=== PATIENT | female | born 1980 | race Caucasian/White ===

== ENCOUNTER 2016-04-27 03:54 | Inpatient (IN) | payer OTHER ==
[2016-04-27 04:08] VITALS: BMI 28.3
[2016-04-27] MEDS ORDERED: OXYTOCIN 10 UNITS/ML VIAL IM ONE (10:27)
[2016-04-27] MEDS ORDERED: LIDOCAINE Viscous 2% 15 ML UDCUP ONE (10:29)
[2016-04-27] MEDS ORDERED: LIDOCAINE 1% (PRES FREE) 30 ML VIAL ONE (10:29)
[2016-04-27] MEDS ORDERED: OXYTOCIN 10 UNITS/ML VIAL ONE (10:29)
[2016-04-27] MEDS ORDERED: MINERAL OIL 25 ML BOT ONE (10:29)
[2016-04-27] MEDS ORDERED: PUMP TUBING ONE (10:29)
[2016-04-27] MEDS ORDERED: OXYTOCIN IN LR 0 ML IV ONE (10:29)
[2016-04-27 10:59] LABS: HEMATOCRIT 35.7 % (37.0-47.0); HEMOGLOBIN 12.5 gm/l (12.0-16.0); MEAN CORPUSCULAR HEMOGLOBIN 32.2 pg (27.0-31.0); RED CELL DISTRIBUTION WIDTH 12.6 % (11.5-14.5)
--- NOTE | 2016-04-27 11:14 | PCMAN ---
OB Admission Note - History : 1 Term: 0 : 0 Abortions (S&E): 0 Livin Gestational Age (weeks): 39 Days (#/7): 4 Admit Cervical Dilation:: 5 Admit Cervical Effacement (%):: 100 Admit Station:: -1 Admit Presentaton:: vertex Membrane Status: Bulging Membranes Comment:: intact Labor Onset (Date): 04/27/16 Labor Onset (Time): 10:36 Contractions: Yes Contraction Frequency:: q 2-3 mins lasting 60-90 sec Heart Rate:: 150 (moderate variability, no decels, pos accels) Status:: Cat 1 EFW:: 6.75lbs Summary of Course:: SHENG Piper is a 35yo at 39w4d who presented for care in latent labor this morning after sari all night. She presented to triage with concern for SROM. Negative ferning, nitrazine and pooling, did not confirm ROM. SVE was 1/ 80%/-1 and BBOW was palpated. After 5 hours in triage, she had progressed to 5cm/100%/-1/mid/soft and was admitted for care in active labor. Reactive NST. Course Planned welcome with , Godwin. Veronique initiated PNC at [facility] in [facility] at 8w2d and transferred to the Midwives at 17w5d for a total of 16 visits. Dates confirmed by 8w US. She participated in Centering Care and attended the labor class. Her 20w US was WNL. Initial BMI was 25 with a TWG of 25 lbs. GBS neg status. Her was complicated by concerns for growth r/t measuring S<D, follow up US at 31 and 33 weeks showed adequate growth and fluid levels WNL. OB Hx - negative Med Hx - Depression, has not needed meds for 6 years, stable trhoughout this Surg Hx: wisdom teeth 1998 Allergies: Sulfa drugs - Labs Blood Type: A (+) positive Hct/Hgb:: 10.9/40.7 Rubella Status: Immune GBS Status: Negative Abnormal Labs: None - Review of Systems Complete ROS is negative except for abdominal pain described as contractions and brownish tinged vaginal mucous. - Physical Exam General: Afebrile Psych/Mental Status: Mood/Affect Appropriate, Judgment/Insight Intact Neurological: Grossly Intact, Alert, Oriented x 4 HEENT: Atraumatic Lungs: Clear to Auscultation Bilaterally, Normal Air Movement Cardiovascular: Regular Rate and Rhythm, Normal S1, Normal S2 Genitourinary: Normal Female Genitalia Rectal Exam: Deferred Extremities: Full ROM Skin: Normal Color (Flaco's LOP) - Problems (1) Active labor at term Status: Acute Code: [id number]/Plan: A: Undelivered at 39w4d Active Labor GBS neg Intact membranes VSS Fetus Cat 1 P: Admit to [facility] Patient desires unmedicated . Plans to use hydrotherapy, positions, support from her partner to manage the intensity of labor. Patient declined RPR on admit, declines AMTSL. IA monitoring per unit protocol Reevaluate in 2-4 hours or when clinically indicated. Anticipate .
--- NOTE | 2016-04-27 12:46 | PDOC36 ---
Provider Note Subject: Labor Progress Note Note: S: Veronique just got out of the tub, reports that her back pain is improved and is asking about doing Spinning Babies in labor. O: VS BP 140/77 T 37.1C RR 20 P 109 FHR 145, regular rhythm, no decreases auscultated ctx q 2-3 mins moderate by palpation with adequate resting tone SVE deferred membranes intact A: Undelivered at 39w4d Active Labor GBS neg Intact membranes VSS Fetus reassurring per IA P: Patient instructed in side-lying release with partner supporting. Will do this 15 mins per side. Continue with ambulation, ball, hydrotherapy, positions, & support from her partner to manage the intensity of labor. IA monitoring per unit protocol Reevaluate in 2-4 hours or when clinically indicated. Anticipate .
--- NOTE | 2016-04-27 15:17 | PDOC36 ---
Provider Note Subject: Labor Progress Note Note: S: Veronique is feeling a lot of pressure and pain in her back. She is breathing and working hard with contractions. O: VS BP 114/73 T 37.7C RR 22 P 94 FHR 150, regular rhythm, no decreases auscultated ctx q 1-3 mins strong by palpation with adequate resting tone last SVE at 1345 7cm/100%/-1 SROM clear fluid at 1405 A: Undelivered at 39w4d Active Labor GBS neg Ruptured membranes, afebrile VSS Fetus reassurring per IA Coping well with labor P: Continue with ambulation, ball, hydrotherapy, positions, & support from her partner, CNM and RN to manage the intensity of labor. IA monitoring per unit protocol Reevaluate in 2-4 hours or when clinically indicated. Anticipate .
--- NOTE | 2016-04-27 18:41 | PDOC36 ---
Provider Note Subject: Progress Note Note: S/ Veronique is coping very well through her ctxs. She is breathing and laying on her side in bed. She c/o back pain and pressure is being applied. Her is very supportive. Bag of fluid noted with exam. Discussed with Veronique that this can be broken if she desired, however, labor is progressing and it is not essential at this time. She agrees to wait to see how labor continues. She is quite tired and ready to be done. O/ SVE: 9/100/0 Intact Position not palpated FHR by IA 145, No decels noted with auscultation Ctxs every 2-4 mins, lasting 40-60 secs 101/58, 93, 18 Afebrile GBS neg A/ Active labor Cat 1 FHR Coping P/ Position changes - Encouraged forward leaning. Currently she is sleeping between ctxs on her side. Clear liquids Encourage to empty bladder AROM only if progress slows Anticipate vaginal
[2016-04-27] MEDS ORDERED: MINERAL OIL 25 ML BOT TP ONE (22:12)
[2016-04-27] MEDS ORDERED: PHENYLEPHRINE 0.25% PR PRN (22:55)
[2016-04-27] MEDS ORDERED: LANOLIN 50 APPLIC/7G TUBE TP PRN (22:56)
[2016-04-27] MEDS ORDERED: ACETAMINOPHEN 325 MG TABLET PO PRN (22:56)
[2016-04-27] MEDS ORDERED: DOCUSATE SODIUM 100 MG CAPSULE PO PRN (22:56)
[2016-04-27] MEDS ORDERED: HYDROCODONE/ACETAMINOPHEN 5/325MG TABLET PO PRN (22:56)
[2016-04-27] MEDS ORDERED: BENZOCAINE/MENTHOL 60 APPLIC/BOT TP PRN (22:56)
[2016-04-27] MEDS ORDERED: OXYCODONE/ACETAMINOPHEN 5/325 MG TABLET PO PRN (22:56)
[2016-04-27] MEDS: IBUPROFEN 800 MG TABLET PO SCH (23:07)
--- NOTE | 2016-04-27 23:19 | PCMDEL ---
Delivery Note - Labor 1st stage (hr/min):: 11hours and 16 mins 2nd stage (hr/min):: 1 hour and 4 mins 3rd stage (hr/min):: 17 mins Pushed (hr/min):: 1 hour and 4 mins - Delivery Delivery (Date): 04/27/16 Delivery (Time): 22:06 Infant Gender: Female Position: OA Umbilical Cord: 3 Vessel Delayed Cord Clamping:: < 1 min 1 Minute Total: 5 5 Minute Total: 6 Placenta:: Intact, meeks EBL:: 200 mls Perineum:: 1st degree and left inner labia Suture:: none Anesthesia/Meds:: none Length ROM:: 1 hr and 21 mins Comments:: Vaginal Delivery Note: Stage I: Patient is a 35 year-old with an CASIMIRO of [birth year] who presents to L&D at 39 weeks and 4 days gestation. Her care has not been complicated. Her GBS screen was Negative. The patient was admitted on 04/27/16 10:25. Membranes ruptured on 04/27/16 at 14:05 for clear fluid - probably a forebag. She SROM'd at 8:45 pm for mec stained fluid. EFM was placed at this time. Active labor progressed well throughout the day. Veronique actively labored unmedicated and in a variety of positions. Induction/augmentation agents: NONE heart rate tracing revealed category 1 in early labor and IA used. After she SROM'd for light mec, EFM was placed. Within minutes of SROM she was having a strong urge to push with ctxs. She was noted to have variables with pushing, particularly while on her back. Pt was rotated to her left side and pushed effectively in this position. She was rotated to her right side also. FHR was Cat 2 throughout pushing. Anesthesia: NONE Stage II: Second stage was approximately 1 hour and 4 mins minutes in duration. She went on to effective spontaneous vaginal delivery vertex; baby restituted to ALEX, 1 X nuchal cord that was not reduced. Remainder of baby delivered without complications. No shoulder dystocia evident. An episiotomy was not performed. Delayed cord clamping of one minute not undertaken. After baby was stimulated she remained limp and not attemtping to breath well on her own. The cord was clamped and cut and baby given to RT. She was stimulated and could be heard trying to cry. Her HR was >100. A female baby was born at 10:06pm. Birthweight was pending. scores were 5, 6 and 8. Stage III: Third stage was normal with spontaneous vaginal delivery of an intact placenta with a 3 vessel cord with central cord insertion. Her perineum and vagina were inspected and a 1st degree laceration was noted. At the conclusion of the delivery the sponge and the needle count were correct. Estimated blood was 200 ml. Uterus firmed up nicely. Active management of third stage of labor was not required. Complications: Mec stained fluid, cord clamped and cut for respiratory help immediately post delivery. Baby did well after being suctioned. After some oxygen, baby was placed skin to skin with mum. Baby Bubba's o2 sats were 97%
[2016-04-28] MEDS: IBUPROFEN 800 MG TABLET PO SCH ×2 (08:02→16:29)
--- NOTE | 2016-04-28 11:01 | PDOC44 ---
- Subjective Day: 1 Veronique is feeling well this morning. She reports minimal cramping and bleeding. Taking Ibuprofen with good effect. She reports baby has been to the breast with some sucks. Encouraged working with this morning. Eating, drinking and voiding. Plan on going home tomorrow. Reports , Reports Lochia Light, Reports Tolerating Regular Diet - Objective Temp Pulse Resp BP Pulse Ox 98.4 F 93 16 112/59 04/28/16 07:52 04/28/16 07:52 04/28/16 07:52 04/28/16 07:52 Lab Results 04/27/16 10:54 WBC 18.4 H RBC 3.88 L Hgb 12.5 Hct 35.7 L Plt Count 173 04/27/16 10:54 MCH 32.2 H Current Medications Generic Name Dose Route Start Last Admin Trade Name Freq PRN Reason Stop Dose Admin Acetaminophen 325 - 650 mg 04/27/16 22:56 Tylenol PO Q4H PRN Pain (Mild) Acetaminophen/Hydrocodone Bitart 1 - 2 tab 04/27/16 22:56 [place] 5/325 PO Q4H PRN Pain (Moderate) Benzocaine/Menthol 1 applic 04/27/16 22:56 Dermoplast TP PRN PRN Patient Comfort Docusate Sodium 100 mg 04/27/16 22:56 Colace PO DAILY PRN Comfort Emollient Ointment 1 applic 04/27/16 22:56 [id number] TP PRN PRN sore nipples Ibuprofen 800 mg 04/27/16 23:00 04/28/16 08:02 Motrin PO 800 mg Q8H KULWINDER Administration Oxycodone/Acetaminophen 1 - 2 tab 04/27/16 22:56 Percocet 5/325 PO Q4H PRN Pain (Moderate) Phenylephrine HCl 1 each 04/27/16 22:55 Anusol MA DAILY PRN Pain Sodium Chloride 10 ml 04/27/16 22:56 Normal Saline 10ml Flush IV PRN PRN IV Flush Sodium Chloride 10 ml 04/28/16 09:00 Normal Saline 10ml Flush IV Q8HR KULWINDER - Physical Exam General: Afebrile Psych/Mental Status: Mood/Affect Appropriate Neurological: Grossly Intact, Alert Cardiovascular: Regular Rate and Rhythm Breast: Soft, Skin intact Fundus: Firm Genitourinary: Normal Female Genitalia Lochia: Light Rectal Exam: Deferred Extremities: Full ROM Skin: Normal Color, Warm, Dry, Intact - Problems:Assessment/Plan (1) Normal course Status: AcuteAssessment/Plan: A/ Day 1 s/p vaginal delivery P/ consult today Rest Disposition: Anticipate DC to Home, Anticipate DC Home Tomorrow
[2016-04-29] MEDS: IBUPROFEN 800 MG TABLET PO SCH ×2 (00:18→08:29)
[2016-04-29 08:35] VITALS: BP 107/69
--- NOTE | 2016-04-29 12:52 | PDOC39B ---
Hospital Course: ADMIT DATE: 04/27/16 DISCHARGE DATE: 04/29/16 ADMISSION DIAGNOSES: uterine contractions PROCEDURES: HISTORY OF PRESENT ILLNESS: 35 year old G1 T0 L0 at 39 weeks 4 days presenting with uterine contractions. Achieved an . Stable course. HOSPITAL COURSE: By day of discharge the patient is ambulating, eating, voiding , and passing flatus without difficulty. Pain is controlled and lochia is appropriate. She is exclusively, which has improved after baby's frenotomy. Denies need for Rx. Plans to use Paragard for control. Excellent support from and family. - Physical Exam Vital Signs: Temp Pulse Resp BP Pulse Ox 97.6 F 76 16 107/69 04/29/16 08:20 04/29/16 08:20 04/29/16 08:20 04/29/16 08:20 Psych/Mental Status: Mood/Affect Appropriate, Judgment/Insight Intact, Tearful Lungs: Clear to Auscultation Bilaterally Cardiovascular: Regular Rate and Rhythm Breast: Soft, Skin intact, Erythema (Slight erythema on both nipples; no crack, blisters, or bleeding), Nipples Intact Fundus: Firm, Midline, Below Umbilicus (1FB below) Genitourinary: Normal Female Genitalia Lochia: Light - Discharge Diagnosis (1) Normal course Status: AcuteAssessment/Plan: A: Day 2 s/p vaginal -baby s/p frenontomy with improved latch Lochia stable P: Education: education handout given and reviewed. Discussed warning signs and when to call (bleeding, DVT/PE, infection, baby blues vs mood disorder). : on-demand feedings, [id number], use lanolin and soothies PRN, BABIES clinic appointments Social: good support at home, able to take 1mo off of work, then will have 3 months over the summer off. Rx: none needed Contraception: Paragard Follow-up: on 05/10/16 for 2-week visit or PRN - Discharge Plan Condition: Stable Disposition: Home Additional Instructions: BABIES clinic appt for Friday, 04/30, at 3pm. Bring baby ready to nurse. [place] at the medical front desk specialist of the [facility]. 2-week appointment for Veronique on 05/10/16 at 3pm in [place] with [facility]. Follow-Up: [facility] [place] [Outside]
== END 2016-04-29 13:36 | disposition home or self-care (01) | DRG 775 ==
LOC: FBCOUT 03:54 → FBC 03:54 → FBCOUT 10:25
PROVIDERS: ADMIT Advanced Practice Midwife; ATTEND Advanced Practice Midwife
PROC: 0HQ9XZZ Repair Perineum Skin, External Approach (ICD-10-PCS; principal; 2016-04-27)
PROC: 10E0XZZ Delivery of Products of Conception, External Approach (ICD-10-PCS; 2016-04-27)
PROC: 10907ZC Drainage of Amniotic Fluid, Therapeutic from Products of Conception, Via Natural or Artificial Opening (ICD-10-PCS; 2016-04-27)
DX: O70.0 First degree perineal laceration during delivery (principal); Z3A.39 39 weeks gestation of pregnancy; Z37.0 Single live birth; O77.0 Labor and delivery complicated by meconium in amniotic fluid; O69.81X0 Labor and delivery complicated by cord around neck, without compression, not applicable or unspecified

== ENCOUNTER 2016-04-30 15:09 | Outpatient (CLI) | payer OTHER | END 2016-04-30 15:10 | disposition home or self-care (01) | LOC: BABIESSH 15:09 | PROVIDERS: ATTEND Advanced Practice Midwife | DX: Z39.1 Encounter for care and examination of lactating mother (principal) ==

== ENCOUNTER 2016-05-03 13:54 | Outpatient (CLI) | payer OTHER | END 2016-05-03 13:55 | disposition home or self-care (01) | LOC: BABIESSH 13:54 | PROVIDERS: ATTEND Advanced Practice Midwife | DX: Z39.1 Encounter for care and examination of lactating mother (principal) ==

== ENCOUNTER 2016-05-08 10:56 | Outpatient (CLI) | payer OTHER | END 2016-05-08 10:57 | disposition home or self-care (01) | LOC: BABIESSH 10:56 | PROVIDERS: ATTEND Advanced Practice Midwife | DX: Z39.1 Encounter for care and examination of lactating mother (principal) ==

== ENCOUNTER 2016-05-13 14:52 | Outpatient (CLI) | payer OTHER | END 2016-05-13 14:53 | disposition home or self-care (01) | LOC: BABIESSH 14:52 | PROVIDERS: ATTEND Advanced Practice Midwife | DX: Z39.1 Encounter for care and examination of lactating mother (principal) ==

== ENCOUNTER 2016-05-24 15:48 | Outpatient (CLI) | payer OTHER | END 2016-05-24 15:49 | disposition home or self-care (01) | LOC: BABIESSH 15:48 | PROVIDERS: ATTEND Advanced Practice Midwife | DX: Z39.1 Encounter for care and examination of lactating mother (principal) ==

== ENCOUNTER 2016-05-27 13:48 | Outpatient (CLI) | payer OTHER | END 2016-05-27 13:49 | disposition home or self-care (01) | LOC: BABIESSH 13:48 | PROVIDERS: ATTEND Advanced Practice Midwife | DX: Z39.1 Encounter for care and examination of lactating mother (principal) ==

== ENCOUNTER 2016-05-29 10:00 | Outpatient (CLI) | payer OTHER | END 2016-05-29 10:01 | disposition home or self-care (01) | LOC: BABIESSH 10:00 | PROVIDERS: ATTEND Advanced Practice Midwife | DX: Z39.1 Encounter for care and examination of lactating mother (principal) ==